=== PATIENT | female | born 1970 | race Caucasian/White ===

== ENCOUNTER → 2016-03-06 | Outpatient (CLI) | payer OTHER ==
[2014-10-10 15:26] VITALS: BP 118/69
--- NOTE | 2016-03-06 15:47 | KCIC ---
Two-views left forearm Indication: Reason For Study Reason: LT HAND, WRIST, FOREARM INJURY / Spl. Instructions: Pt has had two fall within the last month. General arm pain / History: Findings: No fracture or dislocation. No periosteal reaction or focal bone lesion. The wrist and elbow joints are grossly intact. Soft tissues are unremarkable. Impression: No fracture or dislocation of the left forearm. Electronically signed by: Karel Faye (Mar 06, 2016 15:46:24)
--- NOTE | 2016-03-06 15:48 | KCIC ---
Three views left wrist Indication: Reason For Study Reason: LT HAND, WRIST, FOREARM INJURY / Spl. Instructions: Pt has had two fall within the last month. General arm pain / History: FINDINGS The proximal carpal row is intact. No fracture or dislocation. The scaphoid is intact. No lunate or perilunate dislocation. Soft tissues are unremarkable. IMPRESSION Normal exam of the left wrist. Electronically signed by: Karel Faye (Mar 06, 2016 15:47:33)
--- NOTE | 2016-03-06 15:51 | KCIC ---
Exam: Three views left hand Indication: Reason For StudyReason: LT HAND, WRIST, FOREARM INJURY / Spl. Instructions: Pt has had two fall within the last month. General arm pain / History: Findings: There is no fracture or dislocation. No periosteal reaction or focal bone lesion. The joint spaces are well maintained. The soft tissues are unremarkable. Impression: Normal exam Electronically signed by: Karel Faye (Mar 06, 2016 15:49:58)
== END | disposition home or self-care (01) ==
LOC: KCIC 14:54
PROVIDERS: ATTEND Physician Assistant Medical
DX: S69.92XA Unspecified injury of left wrist, hand and finger(s), initial encounter (principal)
CPT/HCPCS: 73090; 73110; 73130

== ENCOUNTER → 2017-06-07 | Outpatient (CLI) | payer OTHER | END | disposition home or self-care (01) | LOC: KCIC US 12:09 | DX: K76.0 Fatty (change of) liver, not elsewhere classified (principal); R16.0 Hepatomegaly, not elsewhere classified | CPT/HCPCS: 76705 ==

== ENCOUNTER 2017-11-16 19:45 | Emergency (ER) | payer OTHER ==
[~2017-11-16] VITALS: Ht 149.9 cm; Wt 72.6 kg
[2017-11-16 20:04] VITALS: BP 116/66
[2017-11-16] MEDS ORDERED: SULF1TAB24 PO (20:31)
[2017-11-16] MEDS ORDERED: CEPH-264 PO (20:31)
--- NOTE | 2017-11-16 20:31 | PHYS DOC ---
Past Medical History Past Medical History: Arthritis, Diabetes-Type II Past Surgical History: Appendectomy, Hysterectomy Alcohol Use: None Drug Use: None Adult General Chief Complaint Chief Complaint: ABSCESS HPI HPI Patient is a 46 year old female who presents with complaints of a red tender area to right side of face for the last 24 hours. She states that the area drained pus and clear fluid yesterday. She denies any fever, eye pain, decreased vision, or injury. Review of Systems Review of Systems Constitutional: Denies fever or chills [] Eyes: Denies change in visual acuity, redness, or eye pain [] Integument: Denies rash, reports red tender area to right side of face Neurologic: Denies headache, focal weakness or sensory changes [] All other systems were reviewed and found to be within normal limits, except as documented in this note. Allergies Allergies Allergies Coded Allergies Type Severity Reaction Last Updated Verified No Known Drug Allergies 10/10/14 No Physical Exam Physical Exam Constitutional: Well developed, well nourished, no acute distress, non-toxic appearance. [] HENT: Normocephalic, atraumatic, bilateral external ears normal, nose normal. [] Eyes: PERRLA, EOMI, conjunctiva normal, no discharge. [] Cardiovascular:Heart rate regular rhythm, no murmur [] Lungs & Thorax: Bilateral breath sounds clear to auscultation [] Skin: Warm, dry; 2 cm diameter area of erythema that is warm, indurated, and non -fluctuant to r episcopalian consistent with cellulitis/abscess Neurologic: Alert and oriented X 3, normal motor function, normal sensory function, no focal deficits noted. [] Psychologic: Affect normal, judgement normal, mood normal. [] Current Patient Data Vital Signs Vital Signs Date Time Temp Pulse Resp B/P (MAP) Pulse Ox O2 Delivery O2 Flow Rate FiO2 11/16/17 20:04 98.0 82 16 116/66 (83) 99 98.0 EKG EKG [] Radiology/Procedures Radiology/Procedures [] Course & Med Decision Making Course & Med Decision Making Pertinent Labs and Imaging studies reviewed. (See chart for details) Dx: cellulitis, abscess Prescriptions written for bactrim DS and keflex. Apply warm compresses every 1- 2 hours while awake. Follow up with PCP Saturday for wound recheck. Patient verbalized an understanding of home care, medications, follow-up, and return to ED instructions and was in agreement with the plan of care. [] Dragon Disclaimer Dragon Disclaimer This electronic medical record was generated, in whole or in part, using a voice recognition dictation system. Departure Departure Impression: Primary Impression: Cellulitis and abscess of face Disposition: HOME, SELF-CARE Condition: STABLE Referrals: SUKI CRESPO MD (PCP) Patient Instructions: Cellulitis, [id number] Additional Instructions: Fill prescription and use as directed. Apply warm compresses every 1-2 hours while awake. Follow up with PCP Saturday for wound recheck. May take tylenol or ibuprofen as needed for pain. Return to the ER if your symptoms worsen. Scripts Sulfamethoxazole/Trimethoprim (BACTRIM DS TABLET) 1 Each Tablet 1 TAB PO BID, #20 TAB Prov: BOLIVAR RHODES APRN 11/16/17 Cephalexin (KEFLEX) 500 Mg Capsule 500 MG PO QID for 10 Days, #40 CAP 0 Refills Prov: BOLIVAR RHODES APRN 11/16/17 BOLIVAR RHODES APRN Nov 16, 2017 20:31
== END 2017-11-16 20:48 | disposition home or self-care (01) ==
LOC: ER 19:45
DX: L03.211 Cellulitis of face (principal); E11.9 Type 2 diabetes mellitus without complications
CPT/HCPCS: 99283

== ENCOUNTER → 2020-02-15 | Outpatient (CLI) | payer OTHER ==
[~2020-02-15] MED LIST: ATOR40TA59 PO; CEPH-264 PO; CITA40TA5 PO; GLIM4TAB8 PO; INSU100V13 SQ; INSU100V38 SQ; LIRA0.6P2 SQ; LISI2.5T PO; METF10007 PO; OXYB5TAB10 PO; SULF1TAB24 PO
== END ==
LOC: LAB 10:41
PROVIDERS: ATTEND Internal Medicine Gastroenterology
DX: Z01.812 Encounter for preprocedural laboratory examination (principal); Z20.828 Contact with and (suspected) exposure to other viral communicable diseases
CPT/HCPCS: U0003

== ENCOUNTER → 2020-02-18 | Day surgery (SDC) | payer OTHER ==
[~2020-02-18] MED LIST changes: +IV RINGERS,LACTATED 1000ML 1,000 ML IV ONE; +PROPOFOL 10 MG/ML (20ML) VIAL. IV ONE
[2020-02-18 13:46] VITALS: BP 104/56
--- NOTE | 2020-02-18 14:07 | CONS ---
DATE OF CONSULTATION: 02/18/2020 REFERRING PHYSICIAN: Mary Storey MD REASON FOR CONSULTATION: Colorectal screening. HISTORY OF PRESENT ILLNESS: This is a 49-year-old female with past medical history which is significant for diabetes and hyperlipidemia, seen for colonoscopy. Bowel habits are regular without diarrhea or constipation. There has been no melena and/or hematochezia. Weight and appetite are stable. She is otherwise without additional complaints. PAST MEDICAL HISTORY: Diabetes, hyperlipidemia. ALLERGIES: None. MEDICATIONS: Include atorvastatin, citalopram, glimepiride, insulin, Victoza, lisinopril, metformin, oxybutynin. PAST SURGICAL HISTORY: Significant for hysterectomy. FAMILY AND SOCIAL HISTORY: Noncontributory. REVIEW OF SYSTEMS: Per records. PHYSICAL EXAMINATION: GENERAL: Reveals a well-nourished, well-developed female who is alert, cooperative, in no acute distress. VITAL SIGNS: Temperature 97.0, pulse 81, respirations 20. LUNGS: Clear. CARDIOVASCULAR: Reveals an S1, S2 without S3, S4 or appreciable murmur. ABDOMEN: Reveals a soft abdomen, normal bowel sounds, without appreciable hepatosplenomegaly. EXTREMITIES: Reveals no cyanosis, clubbing or edema. IMPRESSION: Colorectal screening is warranted at this time. Risks and benefits of procedure including risk of hemorrhage and perforation and operation have been discussed with the patient, family is willing to proceed. PIPPA BUSTOS MD DR: DALE/belinda JOB#: [id number] / [id number] mohsen Storey Dr.
--- NOTE | 2020-02-23 08:59 | PATHOLOGY ---
[facility] Accession Number: [id number] . 01 Material submitted: . colon - ASCENDING COLON POLYP. Modifiers: ascending . 01 Clinical history: . SCREENING COLONOSCOPY . 02 Diagnosis: Colon biopsies, ascending colon polyp: - Tubular adenoma. (JPM:tasha; 02/22/2020) QMS 02/22/2020 1155 Local . 02 Comment: There is no high grade dysplasia or evidence of malignancy. (JPM:tasha; 02/22/2020) . 02 Electronically signed: . Germain Posey MD, Pathologist NPI- [id number] . 01 Gross description: . The specimen is received in formalin, labeled "Voss, Leila, ascending colon polyp" and consists of multiple fragments of pandey tissue measuring 2.0 x 0.8 x 0.3 cm in aggregate which are entirely submitted in A1. (SDY; 02/21/2020) SYU/SYU 02/21/2020 1009 Local . 02 Pathologist provided ICD-10: D12.2 . 02 CPT . 553950 Specimen Comment: A courtesy copy of this report has been sent to [phone] Specimen Comment: Report sent to Specimen Comment: A duplicate report has been generated due to demographic updates. Performed at: 01 [facility] [address], [place] [id number] MD Babak Cartagena MD Phone: [phone] Performed at: 02 [facility] [address], [place] [id number] MD Germain Posey MD Phone: [phone]
== END | disposition home or self-care (01) ==
LOC: ENDOS 11:32
PROVIDERS: ATTEND Internal Medicine Gastroenterology
DX: Z12.11 Encounter for screening for malignant neoplasm of colon (principal); K64.0 First degree hemorrhoids; K63.5 Polyp of colon; K63.89 Other specified diseases of intestine; I10 Essential (primary) hypertension; E78.00 Pure hypercholesterolemia, unspecified; E11.9 Type 2 diabetes mellitus without complications; M19.90 Unspecified osteoarthritis, unspecified site; F17.210 Nicotine dependence, cigarettes, uncomplicated; Z90.710 Acquired absence of both cervix and uterus; Z98.890 Other specified postprocedural states; Z79.4 Long term (current) use of insulin; Z79.899 Other long term (current) drug therapy
CPT/HCPCS: 45385; J2704; 45380